=== PATIENT | female | born 1965 | race African-American/Black ===

== ENCOUNTER → 2020-03-18 14:59 | Outpatient (CLI) | payer OTHER, SELFPAY ==
--- NOTE | ~2020-03-18 | MM_ITS ---
EXAMINATION: MM screening [facility] BI w sarina HISTORY: Screening TECHNIQUE: Craniocaudal and mediolateral oblique 3-D tomosynthesis images were obtained and synthetic 2-D images were generated. CAD analysis was submitted and interpreted. COMPARISON: Comparison to multiple prior studies sequentially, with oldest reviewed study dated 11/21. BREAST PARENCHYMAL COMPOSITION: There are scattered areas of fibroglandular density. FINDINGS: There is no evidence of suspicious mass, calcification, or architectural distortion to sugg est malignancy in either breast. There has been no suspicious interval change. IMPRESSION: 1. No mammographic evidence of malignancy. 2. Recommend routine screening mammography in one year. BI-RADS Category 1: Negative Reviewed, dictated and finalized at location A.
== END ==
PROVIDERS: Visit Provider Nurse Practitioner
DX: Z12.31 Encounter for screening mammogram for malignant neoplasm of breast (principal)
CPT/HCPCS: 77063; 77067

== ENCOUNTER → 2021-03-24 10:46 | Outpatient (CLI) | payer BC, SELFPAY ==
--- NOTE | ~2021-03-24 | MM_ITS ---
EXAMINATION: MM screening [facility] BI w sarina HISTORY: Screening TECHNIQUE: Craniocaudal and mediolateral oblique 3-D tomosynthesis images were obtained and synthetic 2-D images were generated. CAD analysis was submitted and interpreted. COMPARISON: Comparison to multiple prior studies sequentially, with oldest reviewed study dated 07/2014. BREAST PARENCHYMAL COMPOSITION: There are scattered areas of fibroglandular density. FINDINGS: There is no evidence of suspicious mass, calcification, or architectural distortion to sugg est malignancy in either breast. There has been no suspicious interval change. IMPRESSION: 1. No mammographic evidence of malignancy. 2. Recommend routine screening mammography in one year. BI-RADS Category 1: Negative Reviewed, dictated and finalized at location A.
== END ==
PROVIDERS: PCP Family Medicine; Visit Provider Nurse Practitioner
DX: Z12.31 Encounter for screening mammogram for malignant neoplasm of breast (principal)
CPT/HCPCS: 77063; 77067

== ENCOUNTER 2021-04-06 00:58 | Day surgery (SDC) | payer BC, SELFPAY ==
[2021-03-31 10:37] VITALS: BMI 37.9
--- NOTE | 2021-04-03 15:51 | WPDANESEPPF ---
Anes - Initial Pre Proc Eval Procedure: Operation Date: 04/06/21 08:15 Proposed Procedures p Hysteroscopy Dilation and Curettage, Possible Myomectomy - Yumiko Grijalva MD Date/Time: 04/03/21 15:51 Surgeon: Yumiko Grijalva MD Pre Op Diagnosis: abnormal uterine bleeding , fibroids Patient Data Age: 55 Gender: F Height: 1.57 m Weight: 94 kg Allergies Allergy/AdvReac Type Severity Reaction Status Date / Time shellfish derived Allergy Mild tongue and Verified 04/06/21 06:29 mouth swelling Home Medications Medication Instructions Recorded Confirmed Type ergocalciferol (vitamin D2) 1,250 1,250 mcg PO WEEKLY 10/04/19 04/06/21 History mcg (50,000 unit) capsule cyanocobalamin (vitamin B-12) 1,000 mcg PO DAILY 03/31/21 04/06/21 History [Vitamin B-12] Patient hx anesthesia problems: none Family hx anesthesia problems: none PMFSH Past Medical History Medical History (Updated 04/06/21 @ 07:16 by Yumiko Grijalva MD) Gastritis Low vitamin D level Normal colonoscopy 2015( hemorrhoids), repeat in 10 years Obesity (BMI 30-39.9) Postmenopausal Surgical History Surgical History (Updated 04/06/21 @ 07:15 by Yumiko Grijalva MD) Hx of colonoscopy Hx of esophagogastroduodenoscopy Status post hysteroscopic myomectomy 2013 Tubal ligation status Family History Family History Mother Hypertension Family history of elevated blood lipids Family history of kidney disease Family history of lupus erythematosus Family history of malignant neoplasm of uterus Sibling Family history of kidney disease Family history of lupus erythematosus Family history of malignant neoplasm of breast in first degree relative Social History Social History Social History: Smoking status: Never smoker Second hand tobacco smoke exposure: No Alcohol intake: never Substance use: never Substance use type: does not use Living arrangements: with family Gender identity (if verbalized by the patient): Female Sexual Orientation (if Verbalized by the Patient): Straight or Heterosexual Spiritual care concerns: No Anes - Eval Final PreProcedure Day of Procedure 04/03/21 15:51 Patient weight: obese Heart: regular rate and rhythm Lungs: clear to auscultation and normal air movement Airway: Mallampati scale class II Neurological: alert and oriented Last oral intake: >/= 8 hours ASA classification: II Emergent: no Anesthetic plan: proceed Anesthesia type and monitoring: general GIVS and standard monitoring Informed Consent: The patient's anesthetic plan and its attendant risks and benefits were discussed with the patient/family/POA. Questions were solicited and answers provided to the satisfaction of the patient/family/POA.
[2021-04-06] MEDS: LACTATED RINGERS 1,000 ML 30 ML IV CONT (07:09)
--- NOTE | 2021-04-06 07:12 | WPDHPUPDATE1 ---
History and Physical Update Update Date/Time: 04/06/21 07:12 History and Physical has been reviewed, including an updated exam of the patient. There are NO changes in the patient's condition. Risks, benefits, and alternatives have been discussed and questions answered. Patient agrees to proceed with procedure.
--- NOTE | 2021-04-06 07:12 | PM.HPGS ---
History of Present Illness History of Present Illness Consent: Risks, benefits, and alternatives have been discussed and questions answered. Patient agrees to proceed with procedure. Chief complaint: abnormal uterine bleeding , fibroids Narrative: Tracie Joseph is a 55 year old female with onset of vaginal bleeding in December. It was recommended to further evaluate with hysteroscopy D&C. Risks of infection, bleeding, and perforation were reviewed. Possible pathology was discussed. Patient has known fibroids and possible need for myomectomy if the fibroids are blocking the view of the lining was also discussed.. The patient voices understanding and agrees to proceed. Review of Systems Constitutional: Constitutional: Reports night sweats (And hot flashes) PMFSH Past Medical History Medical History (Updated 04/06/21 @ 07:16 by Yumiko Grijalva MD) Gastritis Low vitamin D level Normal colonoscopy 2015( hemorrhoids), repeat in 10 years Obesity (BMI 30-39.9) Postmenopausal Surgical History Surgical History (Updated 04/06/21 @ 07:15 by Yumiko Grijalva MD) Hx of colonoscopy Hx of esophagogastroduodenoscopy Status post hysteroscopic myomectomy 2014 Tubal ligation status Family History Family History Mother Hypertension Family history of elevated blood lipids Family history of kidney disease Family history of lupus erythematosus Family history of malignant neoplasm of uterus Sibling Family history of kidney disease Family history of lupus erythematosus Family history of malignant neoplasm of breast in first degree relative Social History Social History Social History: Smoking status: Never smoker Second hand tobacco smoke exposure: No Alcohol intake: never Substance use: never Substance use type: does not use Living arrangements: with family Gender identity (if verbalized by the patient): Female Sexual Orientation (if Verbalized by the Patient): Straight or Heterosexual Spiritual care concerns: No Meds Home Medications and Allergies Home Medications Medication Instructions Recorded Confirmed Type ergocalciferol (vitamin D2) 1,250 1,250 mcg PO WEEKLY 10/04/19 04/06/21 History mcg (50,000 unit) capsule cyanocobalamin (vitamin B-12) 1,000 mcg PO DAILY 03/31/21 04/06/21 History [Vitamin B-12] Allergies Allergy/AdvReac Type Severity Reaction Status Date / Time shellfish derived Allergy Mild tongue and Verified 04/06/21 06:29 mouth swelling Exam Const: General: healthy appearing and alert Orientation/consciousness: patient oriented x3 Resp: Effort & Inspection: normal respiratory effort Auscultation: clear to auscultation bilaterally Cardio: Rate: regular rate Rhythm: regular rhythm GI: GI Palp: Yes Soft to palpation, No Tenderness to palpation present (GI) and Yes Other GI palpation findings present (Uterus at umbilicus and firm) : External Female Exam: normal external appearance Speculum Exam - Vagina: normal appearance of the vagina and normal vaginal discharge Speculum Exam - Cervix: normal appearance of the cervix Bimanual exam- vagina & uterus: consistency normal and enlarged (At umbilicus) Bimanual Exam- Adnexa, other: normal adnexae and No adnexal tenderness Neuro: General: patient oriented x3 Assessment and Plan Assessment and plan (1) Post-menopausal bleeding: Code(s): N95.0 - Postmenopausal bleeding Status: Acute Assessment and Plan: Plan to proceed with D&C hysteroscopy
[2021-04-06] MEDS: ACETAMINOPHEN 500 MG TABLET 1000 MG PO (07:17)
[2021-04-06 07:33] VITALS: BP 131/79; PULSE 65; RESP 18; TEMP 36.7; O2SAT 100
[2021-04-06 08:32] VITALS: BP 109/67; PULSE 67; RESP 14; O2SAT 96
--- NOTE | 2021-04-06 08:32 | P.OP_ITS ---
Procedure Note - Detailed Date of Procedure 04/06/21 Pre-op Diagnosis abnormal uterine bleeding , fibroids Post-op Diagnosis same (+Polyps) Procedure Performed D and C hysteroscopy with MyoSure resection of polyps and fibroid Surgeon Yumiko Grijalva MD Anesthesia MAC and local Findings uterus sounds to 9cm; there are multiple polyps; moderate-sized fibroid at the right cornua Description of Procedure the patient is taken to the operating room and placed under anesthesia in the dorsal lithotomy position. She was prepped and draped in usual sterile fashion. Rena Lara speculum was placed in the vagina and the cervix is grasped on the anterior lip with a tenaculum. The cervix is injected with 1% lidocaine in each quadrant. The uterus is sounded to 9cm. The cervix is serially dilated with Hegar. The diagnostic hysteroscope was placed with the stated findings. The MyoSure device is opened in placed and under direct visualization the polyps are quickly removed. The fibroid in the right cornua was also removed under direct visualization. The MyoSure device is removed and the medium sharp curette is used to sharply curette the endometrium until a good uterine cry was noted in all areas. All instruments were then removed and the patient is awakened from anesthesia and taken to recovery in stable condition. Sponge, needle, and instrument counts are correct per the OR staff. Estimated Blood Loss 5 Drains No Packing No Pathology yes ( Endometrial shavings of polyps and fibroid and endometrial curettings) Complications No immediate complications Condition stable Disposition PACU
[2021-04-06 09:00] VITALS: BP 128/74; PULSE 54; RESP 14; O2SAT 100
[2021-04-06 09:20] VITALS: BP 134/72; PULSE 54; RESP 14
== END 2021-04-06 09:31 | disposition home or self-care (01) ==
PROVIDERS: PCP Family Medicine; Visit Provider Obstetrics & Gynecology Gynecology
PROC: 0U5B8ZZ Destruction of Endometrium, Via Natural or Artificial Opening Endoscopic (ICD-10-PCS; CPT 58563; principal; 2021-04-06 08:15)
DX: N95.0 Postmenopausal bleeding (principal); N84.0 Polyp of corpus uteri; D25.0 Submucous leiomyoma of uterus; E55.9 Vitamin D deficiency, unspecified; E66.9 Obesity, unspecified; Z68.37 Body mass index [BMI] 37.0-37.9, adult
CPT/HCPCS: 58561; 88305; A9270; J2704; J3010; J7030; J7120

== ENCOUNTER 2021-04-23 13:42 | Outpatient (CLI) | payer BC, SELFPAY ==
--- NOTE | ~2021-04-23 | US_ITS ---
EXAMINATION: US soft tissue abdomen DATE: 04/23/2021 14:17 INDICATION: Other specified abdominal hernia without obstruction. Lump at the left lateral abdomen. TECHNIQUE: Multiple grayscale and Doppler ultrasound images of the region of concern at the anterolat eral left abdominal wall were obtained. COMPARISON: None FINDINGS: There is a 7.3 x 5.4 x 2.5 cm mass in the deep subcutaneous tissues at the region of concern which is isoechoic and with similar echotexture to the more superficial subcutaneous fat. No evident internal vascularity on color Doppler. No other abnormal masses or fluid collections identified. The underlyi ng abdominal wall musculature appears unremarkable. No evident hernia. IMPRESSION: 1. Nonspecific 7.3 x 5.4 x 2.5 cm anterolateral left lower quadrant subcutaneous mass with appearance consistent with and statistically most likely to represent a lipoma. Reviewed, dictated and finalized at location A. IMPRESSION: 1. Nonspecific 7.3 x 5.4 x 2.5 cm anterolateral left lower quadrant subcutaneou s mass with appearance consistent with and statistically most likely to represe nt a lipoma.
== END 2021-04-23 13:43 | disposition home or self-care (01) ==
LOC: ANHIMG 13:44
PROVIDERS: PCP Family Medicine; Visit Provider Family Medicine
DX: K45.8 Other specified abdominal hernia without obstruction or gangrene (principal)
CPT/HCPCS: 76705

== ENCOUNTER → 2022-05-14 10:40 | Outpatient (CLI) | payer BC, SELFPAY ==
--- NOTE | ~2022-05-14 | MM_ITS ---
EXAMINATION: MM screening [facility] BI w sarina HISTORY: Screening TECHNIQUE: Craniocaudal and mediolateral oblique 3-D tomosynthesis images were obtained and synthetic 2-D images were generated. CAD analysis was submitted and interpreted. COMPARISON: Comparison to multiple prior studies sequentially, with oldest reviewed study dated 09/2015. BREAST PARENCHYMAL COMPOSITION: The breasts are almost entirely fatty. FINDINGS: There is no evidence of suspicious mass, calcification, or architectural distortion to sugg est malignancy in either breast. There has been no suspicious interval change. IMPRESSION: 1. No mammographic evidence of malignancy. 2. Recommend routine screening mammography in one year. BI-RADS Category 1: Negative Reviewed, dictated and finalized at location A.
== END ==
PROVIDERS: PCP Family Medicine; Visit Provider Obstetrics & Gynecology Gynecology
DX: Z12.31 Encounter for screening mammogram for malignant neoplasm of breast (principal)
CPT/HCPCS: 77063; 77067